=== PATIENT | male | born 1945 | race Caucasian/White ===

== ENCOUNTER → 2016-12-12 | Outpatient (CLI) | payer MEDICARE, OTHER ==
--- NOTE | 2016-12-12 17:32 | PCVCIMAG ---
APPROVED REPORT Study performed: 12/12/2016 13:20:09 EXAM: Comprehensive 2D, Doppler, and color-flow Echocardiogram Patient Location: Echo lab Status: routine Other Information Study Quality: Adequate Indications HYPERTENSION, PACER, HYPERTROPHIC CARDIOMYOPATHY, AFIB 2D Dimensions LVEF(%): 58.12 (>50%) IVSd: 16.44 (7-11mm)LVOT Diam: 18.78 (18-24mm) LVDd: 41.11 mm PWd: 13.29 (7-11mm)Ascending Ao: 34.19 (22-36mm) LVDs: 28.66 (25-40mm) Left Atrium: 40.00 (27-40mm) Aortic Root: 27.09 mm LV Single Plane 4CH: 42.43 % Meza's LVEF: 58.12 % Volumes Left Atrial Volume (Systole) Single Plane 4CH: 30.11 mLSingle Plane 2CH: 32.69 mL LA ESV Index: 17.00 mL/m2 Aortic Valve AoV Peak David.: 1.38 m/s AO Peak Gr.: 7.60 mmHgLVOT Max P.26 mmHg LVOT Max V: 1.15 m/s SUSAN Vmax: 2.30 cm2 Mitral Valve E/A Ratio: 1.5 MV Decel. Time: 211.42 ms MV E Max David.: 0.72 m/s MV A David.: 0.49 m/s IVRT: 124.57 ms Pulmonary Valve PV Peak Gr.: 2.37 mmHg Tricuspid Valve TR Peak David.: 2.45 m/s TR Peak Gr.: 23.98 mmHg Left Ventricle The left ventricle is normal size. There is normal LV segmental wall motion. Moderate concentric left ventricular hypertrophy. LVEF is 45-50%. The left ventricular diastolic function is normal. Right Ventricle The right ventricle is normal size. Pacermaker wire is noted. The right ventricular systolic function is normal. Atria The left atrium size is normal. The right atrium size is normal. A pacemaker is seen in the right atrium consistent with history. Aortic Valve The aortic valve is normal in structure. No aortic regurgitation is present. There is no aortic valvular stenosis. Mitral Valve The mitral valve is normal in structure. Mild mitral regurgitation. No evidence of mitral valve stenosis. Tricuspid Valve The tricuspid valve is normal in structure. Trace tricuspid regurgitation. Pulmonary artery pressure is 31mmhg. Pulmonic Valve The pulmonary valve is normal in structure. There is no pulmonic valvular regurgitation. Great Vessels The aortic root is normal in size. IVC is normal in size and collapses with >50% inspiration Pericardium There is no pericardial effusion. <Conclusion> The left ventricle is normal size. Moderate concentric left ventricular hypertrophy. LVEF is 45-50%. The right ventricle is normal size. Pacermaker wire is noted. The left atrium size is normal. The right atrium size is normal. A pacemaker is seen in the right atrium consistent with history. The aortic valve is normal in structure. Mild mitral regurgitation. There is no pericardial effusion. Trace tricuspid regurgitation. Pulmonary artery pressure is 31mmhg.
== END | disposition home or self-care (01) ==
LOC: PCVCIMAG 13:10
PROVIDERS: ATTEND Internal Medicine Cardiovascular Disease
DX: I08.1 Rheumatic disorders of both mitral and tricuspid valves (principal); I48.0 Paroxysmal atrial fibrillation; I10 Essential (primary) hypertension; I45.9 Conduction disorder, unspecified; I44.2 Atrioventricular block, complete; I42.2 Other hypertrophic cardiomyopathy; E78.00 Pure hypercholesterolemia, unspecified; Z95.0 Presence of cardiac pacemaker; Z88.8 Allergy status to other drugs, medicaments and biological substances; Z79.899 Other long term (current) drug therapy
CPT/HCPCS: 80061; 93005; 93306; G0463

== ENCOUNTER → 2017-06-16 | Outpatient (CLI) | payer MEDICARE, OTHER ==
[~2017-06-16] MED LIST: REGADENOSON 0.4 MG/5 ML DISP.SYRIN. IV
== END | disposition home or self-care (01) ==
LOC: PCVCIMAG 08:47
DX: I48.0 Paroxysmal atrial fibrillation (principal); I42.8 Other cardiomyopathies; I10 Essential (primary) hypertension; E78.00 Pure hypercholesterolemia, unspecified; I51.7 Cardiomegaly; R94.31 Abnormal electrocardiogram [ECG] [EKG]; Z95.0 Presence of cardiac pacemaker; Z79.899 Other long term (current) drug therapy
CPT/HCPCS: 78452; 93005; 93017; 93280; A9500; G0463; J2785

== ENCOUNTER → 2017-06-16 | Outpatient (CLI) | payer MEDICARE, OTHER | END | disposition home or self-care (01) | LOC: PCVCCLINIC 13:11 | DX: I10 Essential (primary) hypertension (principal); I42.8 Other cardiomyopathies; I48.0 Paroxysmal atrial fibrillation; E78.00 Pure hypercholesterolemia, unspecified; I51.7 Cardiomegaly; R94.31 Abnormal electrocardiogram [ECG] [EKG]; Z95.0 Presence of cardiac pacemaker; Z79.899 Other long term (current) drug therapy | CPT/HCPCS: 93005; 93280; G0463 ==

== ENCOUNTER → 2018-03-11 | Outpatient (CLI) | payer MEDICARE, OTHER ==
--- NOTE | 2018-03-11 14:31 | PCVCIMAG ---
APPROVED REPORT Study performed: 03/11/2018 13:20:04 EXAM: Comprehensive 2D, Doppler, and color-flow Echocardiogram Patient Location: Echo lab Status: routine BSA: 1.81 HR: 62 bpmBP: 136/80 mmHg Rhythm: Pacemaker Other Information Study Quality: Adequate Indications Pacemaker Hypertrophic cardiomyopathy, parox A Fib 2D Dimensions IVSd: 18.61 (7-11mm) LVDd: 39.94 mm PWd: 12.99 (7-11mm) LVDs: 38.86 (25-40mm) Left Atrium: 40.62 (27-40mm) Aortic Root: 34.15 mm LV Single Plane 4CH: 45.91 % LV Single Plane 2CH: 35.25 % Biplane EF: 40.4 % Volumes Left Atrial Volume (Systole) Single Plane 4CH: 97.85 mLSingle Plane 2CH: 97.62 mL LA ESV Index: 58.00 mL/m2 Aortic Valve AoV Peak David.: 1.27 m/s AO Peak Gr.: 6.47 mmHgLVOT Max P.36 mmHg LVOT Max V: 1.16 m/s Mitral Valve E/A Ratio: 1.8 MV Decel. Time: 259.08 ms MV E Max David.: 0.57 m/s MV A David.: 0.31 m/s IVRT: 141.87 ms Pulmonary Valve PV Peak David.: 0.86 m/sPV Peak Gr.: 2.99 mmHg Pulmonary Vein P Vein S: 0.25 m/sP Vein A: 0.23 m/s P Vein D: 0.48 m/sP Vein A Dur.: 121.1 msec P Vein S/D Ratio: 0.52 Tricuspid Valve TR Peak David.: 2.42 m/s TR Peak Gr.: 23.35 mmHg Left Ventricle The left ventricle is normal size. There is normal LV segmental wall motion. Severe septal and apical left ventricular hypertrophy. Left ventricular systolic function is mildly decreased. LVEF is 45%. Grade II - pseudonormal filling dynamics. Right Ventricle The right ventricle is normal size. The right ventricular systolic function is normal. Pacemaker lead is present in the right ventricle. Atria Left atrium is severely dilated. Right atrium is mildly dilated. Pacemaker lead is present in the right atrium. Aortic Valve The aortic valve is normal in structure. No aortic regurgitation is present. There is no aortic valvular stenosis. Mitral Valve The mitral valve is normal in structure. Trace mitral regurgitation. No evidence of mitral valve stenosis. Tricuspid Valve The tricuspid valve is normal in structure. Mild tricuspid regurgitation with PAP of 33 mmHg. Pulmonic Valve The pulmonary valve is normal in structure. There is no pulmonic valvular regurgitation. Great Vessels The aortic root is normal in size. IVC is normal in size and collapses >50% with inspiration. Pericardium There is no pericardial effusion. There is no pleural effusion. <Conclusion> The left ventricle is normal size. Severe septal and apical left ventricular hypertrophy. Left ventricular systolic function is mildly decreased. LVEF is 45%. The right ventricle is normal size. Left atrium is severely dilated. Right atrium is mildly dilated. Pacemaker lead is present in the right atrium. The aortic valve is normal in structure. Trace mitral regurgitation. Mild tricuspid regurgitation with PAP of 33 mmHg. The aortic root is normal in size. There is no pericardial effusion.
== END | disposition home or self-care (01) ==
LOC: PCVCIMAG 13:16
PROVIDERS: ATTEND Internal Medicine Cardiovascular Disease
DX: I10 Essential (primary) hypertension (principal); I07.1 Rheumatic tricuspid insufficiency; I42.8 Other cardiomyopathies; E78.00 Pure hypercholesterolemia, unspecified; I44.2 Atrioventricular block, complete; I48.91 Unspecified atrial fibrillation; D68.59 Other primary thrombophilia; Z95.0 Presence of cardiac pacemaker
CPT/HCPCS: 80061; 93280; 93306; G0463

== ENCOUNTER → 2018-12-14 | Outpatient (CLI) | payer MEDICARE, OTHER | END | disposition home or self-care (01) | LOC: PCVCCLINIC 10:00 | PROVIDERS: ATTEND Internal Medicine Cardiovascular Disease | DX: I42.8 Other cardiomyopathies (principal); I10 Essential (primary) hypertension; I48.0 Paroxysmal atrial fibrillation; I44.2 Atrioventricular block, complete; E78.2 Mixed hyperlipidemia; Z88.8 Allergy status to other drugs, medicaments and biological substances; Z79.899 Other long term (current) drug therapy | CPT/HCPCS: 36415; 80061; 93280; G0463 ==